=== PATIENT | male | born 1970 | race African-American/Black ===

== ENCOUNTER 2018-08-07 02:40 | Inpatient (IN) | payer SELFPAY ==
[~2018-08-07] VITALS: Ht 170.2 cm; Wt 88.9 kg
[2018-08-07] MEDS ORDERED: NITROGLYCERIN 0.4MG TABLET SL SL PRN (03:00)
[2018-08-07] MEDS ORDERED: ASPIRIN 81MG TABLET PO ONE (03:00)
[2018-08-07 03:45] LABS: BASOPHILS % 0.6 % (0.0-2.0); EOSINOPHILS % 1.2 % (0.0-5.0); HEMATOCRIT. 49.8 % (42.0-52.0); HEMOGLOBIN. 15.8 g/dL (14.0-18.0); LYMPHOCYTES % 33.7 % (20.0-50.0); MEAN CORPUSCULAR HEMOGLOBIN 24.4 pg (28.0-32.0); MEAN PLATELET VOLUME 8.1 fl (7.4-10.4); MONOCYTES % 10.5 % (2.0-8.0); PLATELET 293 x1000/uL (130-400); RED BLOOD CELL COUNT 6.47 mill/uL (4.7-6.1); RED CELL DISTRIBUTION WIDTH 14.2 % (11.6-14.6)
[2018-08-07 03:50] LABS: CHLORIDE 105 mEq/L (98-107)
[2018-08-07] MEDS ORDERED: SODIUM CHLORIDE 0.9% 1,000 ML IV ONE (04:00)
[2018-08-07] MEDS ORDERED: MORPHINE SULFATE 10 MG/ML CPJ IV SCH (04:00)
[2018-08-07] MEDS ORDERED: KETOROLAC 30MG/ML VIAL IV ONE (05:30)
[2018-08-07 08:48] LABS: CLARITY URINE CLEAR (CLEAR); COLOR URINE YELLOW (YELLOW); KETONES URINE NEGATIVE (NEGATIVE); LEUKOCYTE ESTERASE URINE NEGATIVE (NEGATIVE); NITRITE URINE NEGATIVE (NEGATIVE); OCCULT BLOOD URINE NEGATIVE (NEGATIVE); PH URINE 7.5 (4.5-8.0); PROTEIN URINE NEGATIVE (NEGATIVE); SPECIFIC GRAVITY URINE 1.022 (1.005-1.030); UROBILINOGEN URINE 0.2 E.U./dL (0.2-1.0)
[2018-08-07 09:02] VITALS: BP 107/71
[2018-08-07] MEDS ORDERED: HYDROCODONE/ACETAMINOPHEN 5/325MG TABLET PO PRN (09:30)
[2018-08-07] MEDS ORDERED: ONDANSETRON HCL 4MG/2ML INJ IV PRN (09:30)
[2018-08-07] MEDS ORDERED: METOPROLOL TARTRATE 25MG TABLET PO SCH (10:00)
[2018-08-07 12:09] VITALS: BP 98/67
[2018-08-07 13:15] LABS: *AMPHETAMINES SCREEN URINE NEGATIVE (NEGATIVE); CANNABINOID URINE SCREEN NEGATIVE (NEGATIVE); METHADONE URINE SCREEN NEGATIVE (NEGATIVE); OPIATES URINE SCREEN PRESUMTIVE POSITIVE (NEGATIVE); PHENCYCLIDINE URINE SCREEN NEGATIVE (NEGATIVE)
[2018-08-07 13:16] LABS: *BARBITURATES SCREEN URINE NEGATIVE (NEGATIVE); *BENZODIAZEPINES SCREEN URINE NEGATIVE (NEGATIVE); *COCAINE SCREEN URINE NEGATIVE (NEGATIVE)
[2018-08-07 15:42] VITALS: BP 108/77
[2018-08-07 20:00] VITALS: BP 112/83
[2018-08-07] MEDS: METOPROLOL TARTRATE 50MG TABLET PO SCH (20:48)
[2018-08-08] VITALS (7 sets, daily range): BP systolic 103–126; BP diastolic 66–83
[2018-08-08] MEDS ORDERED: ASPIRIN 81MG TABLET PO SCH (09:00)
[2018-08-08] MEDS: METOPROLOL TARTRATE 50MG TABLET PO SCH (09:05)
[2018-08-08] MEDS ORDERED: REGADENOSON 0.4 MG/5 ML IV NR (09:45)
[2018-08-08] MEDS ORDERED: REGADENOSON 0.4 MG/5 ML IV ONE (13:15)
== END 2018-08-08 19:05 | disposition home or self-care (01) | DRG 203 ==
LOC: ER 02:40 → 8WST 05:40 → EDBEDREQTM 05:42 → EDBEDREQ 05:42 → ENRESERV 07:42
PROVIDERS: ADMIT Internal Medicine; ATTEND Internal Medicine
DX: R07.89 Other chest pain (principal); I10 Essential (primary) hypertension; R00.0 Tachycardia, unspecified; R73.03 Prediabetes
CPT/HCPCS: 36415; 71045; 78452; 80061; 80305; 82550; 82553; 83880; 84443; 84484; 85379; 93005; 93017; 93306; 96361; 96374; 96375; 99285; A9500; J1885; J2270; J2785

== ENCOUNTER 2019-03-07 14:38 | Emergency (ER) | payer MEDICAID, OTHER ==
[~2019-03-07] VITALS: Ht 175.3 cm; Wt 86.0 kg
[2019-03-07 18:32] VITALS: BP 116/83
== END 2019-03-07 20:20 | disposition left against medical advice (07) ==
LOC: ER 20:07
DX: R10.30 Lower abdominal pain, unspecified (principal); Z53.21 Procedure and treatment not carried out due to patient leaving prior to being seen by health care provider

== ENCOUNTER 2019-03-08 08:02 | Emergency (ER) | payer MEDICAID, OTHER ==
[~2019-03-08] VITALS: Ht 175.3 cm; Wt 86.0 kg
[2019-03-08 09:15] VITALS: BP 124/93
[2019-03-08] MEDS ORDERED: KETOROLAC 60MG/2ML VIAL IM ONE (09:15)
[2019-03-08 09:41] LABS: CLARITY URINE CLEAR (CLEAR); COLOR URINE YELLOW (YELLOW); KETONES URINE NEGATIVE (NEGATIVE); LEUKOCYTE ESTERASE URINE NEGATIVE (NEGATIVE); NITRITE URINE NEGATIVE (NEGATIVE); OCCULT BLOOD URINE NEGATIVE (NEGATIVE); PH URINE 5.5 (4.5-8.0); PROTEIN URINE NEGATIVE (NEGATIVE); SPECIFIC GRAVITY URINE 1.029 (1.005-1.030)
== END 2019-03-08 10:14 | disposition home or self-care (01) ==
LOC: ER 08:03
DX: N50.82 Scrotal pain (principal); N50.811 Right testicular pain
CPT/HCPCS: 76870; 81003; 93976; 96372; 99284; J1885